=== PATIENT | male | born 1975 | race Caucasian/White ===

== ENCOUNTER 2021-03-21 18:40 | Emergency (ER) | payer OTHER, SELFPAY ==
[2021-03-21 18:42] VITALS: PULSE 87; RESP 15; TEMP 36.9; O2SAT 100; BMI 19.2
[2021-03-21 18:52] VITALS: BP 95/74
[2021-03-21] MEDS: HYDROmorphone 1 MG/ML Syringe 0.5 MG IV (19:19)
--- NOTE | 2021-03-21 19:28 | US_ITS ---
We are attempting to reach an attending provider to discuss findings. An addendum with communication details will be sent when the communication is complete. STUDY: VENOUS DOPPLER ULTRASOUND - LEFT LOWER EXTREMITY REASON FOR EXAM: Male, 45 years old. LEG PAIN AND SWELLING LT LEG PAIN TECHNIQUE: Ultrasound evaluation of the deep vein system to include rubalcava-scale imaging and compression was performed. Rubalcava-scale imaging and Doppler sonographic evaluation, including duplex spectral analysis and qualitative color flow sonography, was performed. COMPARISON: None. FINDINGS: Common Femoral Vein: thrombus Common Femoral Vein/Greater Saphenous Junction: thrombus Superficial Femoral Proximal: thrombus Superficial Femoral Middle: thrombus Superficial Femoral Distal: thrombus Popliteal Vein: thrombus Posterior Tibial Vein: Normal compression, spontaneity and augmentation. Normal color Doppler. Peroneal Vein: Normal compression, spontaneity and augmentation. Normal color Doppler. There is demonstrated deep venous thrombosis. US/Venous Duplex Imag/Limited/Uni IMPRESSION: There is a LEFT CFV to POP vein demonstrated deep venous thrombosis. Electronically Signed: Joe Ruvalcaba MD at 21:46 EST Reading Location ID and State: [facility] / [place] , Service support ,
[2021-03-21 19:39] LABS: Absolute Lymphocyte Count 1.25 X10^3/uL (0.83-4.51); Absolute Neutrophil Count 5.4 X10^3/uL (2.0-7.7); Basophil# 0.01 X10^3/uL; Basophil% 0.1 % (0-1); Eosinophil# 0.08 X10^3/uL; Eosinophils% 1.1 % (0-5); Hematocrit 27.4 % (40-54); Hemoglobin 8.6 g/dL (13.0-16.5); Lymphocyte # 1.25 X10^3/ul (0.83-4.51); Lymphocyte % 17.5 % (19-41); Mean Corp Hgb Conc 31.4 g/dL (32-36); Mean Corpuscular Hgb 26.9 pg (27.0-32.0); Mean Corpuscular Volume 85.6 fL (80-94); Monocyte# 0.44 X10^3/uL; Monocyte% 6.1 % (0-10); NRBC Flagged by Analyzer 0 % (0-5); Neutrophil # 5.35 X10^3/uL (2.7-7.7); Neutrophil % 74.8 % (47-70); Platelet Count 352 K/mm3 (150-450); RBC Distribution Width CV 17.6 % (11.6-14.6); RBC Distribution Width SD 55.1 fl (35.1-43.9); White Blood Count 7.2 K/mm3 (4.4-11.0)
--- NOTE | 2021-03-21 19:39 | EDS_ITS ---
HPI History of Present Illness Chief Complaint: Other, Pain/Inj Detail of Chief Complaint: Acute left lower leg pain and discoloration with swelling Informant: patient and spouse/S.O. Onset/Context/Timing Onset: Today and Hours Context: Sudden Onset Timing: Continuous Quality: Pain Location: Left lower extremity Current Severity: Moderate Maximum Severity: Severe Worsened by: Walking Relieved by: Nothing Associated Symptoms Associated Symptoms: Discoloration Narrative Narrative: Patient is a 45-year-old male who sustained significant trauma to his abdomen and has undergone multiple procedures who presents with chief complaint of left lower extremity pain and swelling with discoloration. He denies fever, chills night sweats. He denies shortness of breath or chest discomfort. He states his blood pressure is low at times. Prior similar symptoms: No Recent Illness/Hospitalization: Yes PFSH PFSH Allergy/AdvReac Type Severity Reaction Status Date / Time No Known Allergies Allergy Verified 03/21/21 18:49 Surgical History (Updated 03/21/21 @ 19:[address] J Carlos Grier MD) History of laparotomy Social History (Updated 03/21/21 @ 19:[address] J Carlos Grier MD) household members: spouse Smoking Status: Former smoker substance use type: does not use ROS ROS ED Constitutional Constitutional ED: Denies chills, fever(s), subjective, sweats or weight loss Cardiovascular Cardiovascular: Denies chest pain, orthopnea, palpitations, paroxysmal nocturnal dyspnea or racing heartbeat Respiratory/Chest Respiratory/Chest: Denies cough, dyspnea, dyspnea on exertion, orthopnea or paroxysmal nocturnal dyspnea Gastrointestinal Gastrointestinal: Denies diarrhea, nausea or vomiting Musculoskeletal Musculoskeletal: Reports other Details: Left lower extremity pain ; Denies arthralgias, back pain, myalgias or neck pain Integumentary Denies Abrasions or rash Neurologic Neurologic: Denies paresthesias or weakness Hematologic/Lymphatic Hematologic/Lymphatic: Denies anemia, easy bleeding or easy bruising EXAM Physical Exam Const Vital Signs: 03/21/21 18:42 03/21/21 18:50 03/21/21 18:52 Temperature 98.4 F Temperature Source Oral Pulse Rate 87 Respiratory Rate 15 Respiratory Effort Normal Non-Labored Respiratory Pattern Normal Blood Pressure 95/74 Blood Pressure Mean 81 Pulse Ox 100 Oxygen Delivery Method Room Air 03/21/21 21:28 02/08/22 23:16 Temperature Temperature Source Pulse Rate 91 93 Respiratory Rate 18 15 Respiratory Effort Respiratory Pattern Blood Pressure 109/71 104/72 Blood Pressure Mean 83 82 Pulse Ox 99 99 Oxygen Delivery Method Room Air Room Air Positive well nourished and well developed General Appearance ED: well developed and NAD; Negative for diaphoretic or pallor HEENT Reports moist mucous membranes Negative for trauma or tenderness Eyes PERRL and EOMs intact bilaterally General Eye ED: Negative for pale conjunctiva or scleral icterus Neck supple Resp normal respiratory effort Cardio regular rate and regular rhythm GI Rectal Exam: other Other Details: Patient with multiple scars Kenny-Moffett drain that is draining fecal matter because of persistent perforated bowel. Extremity Negative for normal to inspection Extremity Narrative: The left lower extremity exam swollen, discolored and pain along the distribution deep venous system. Veins are slightly prominent. Capillary refill is less than 2 seconds. General Extremety ED: Yes edema; Negative for tenderness General Extremity: edema Neuro oriented x3 and CN's II-XII intact bilaterally Sensorium / Orientation: alert Psych Mood & Affect: depressed Skin no wounds General Skin Exam: Negative for jaundice or pallor MDM MDM MDM Narrative Medical decision making narrative: With multiple surgical procedures, recent discharge from hospital and decreased activity and abrupt onset of leg pain, swelling discoloration concern patient has a DVT. Since patient has a palpable DP pulse and capillary refill less than 2 seconds doubt arterial occlusion. Patient has a clot common femoral to the distal popliteal. Material coming from drain is bloody fecal material. Patient cannot be anticoagulated. This would explain his elevated BUN to creatinine ratio and anemia. Since he received his care initially at [facility] and his surgeon is at [facility] he and his requested transfer to [facility]. The nurse at the call center informed the national secretary he will be placed on the list. They would not tell where he was on that list other than he is on the list. Apparently there are people in the emergency room waiting to be admitted and have been waiting for a long time. He and his were asked if there is any other facility they like to go to. is making calls. called Dr. Wade's answering service. I was instructed to call Dr. Wade. He instructed the nurse to have Dr. Wade contact me. I was informed that he is performing emergent surgery. Disposition pending convers ation with Dr. Sheri. Lab Data Attestation: I reviewed the patient's lab results. Lab results narrative: Patient has elevated BUN/creatinine ratio either this represents profound dehydration or possible GI bleed. Hemoglobin is 8.6. Will review prior records. Labs: Laboratory Results - last 24 hr 03/21/21 03/21/21 03/21/21 19:20 19:20 22:27 WBC 7.2 RBC 3.20 L Hgb 8.6 L Hct 27.4 L MCV 85.6 MCH 26.9 L MCHC 31.4 L RDW Std Deviation 55.1 H RDW Coeff of Michael 17.6 H Plt Count 352 MPV 9.0 Immature Gran % (Auto) 0.400 Neut % (Auto) 74.8 H Lymph % (Auto) 17.5 L [place] % (Auto) 6.1 Eos % (Auto) 1.1 Baso % (Auto) 0.1 Absolute Neuts (auto) 5.4 Absolute Lymphs (auto) 1.25 Nucleated RBC % 0 PT 13.5 INR 1.1 APTT 32.1 Sodium 141 Potassium 4.0 Chloride 110 H Carbon Dioxide 26.0 Anion Gap 5 BUN 41 H Creatinine 0.81 Estim Creat Clear Calc 104.58 Est GFR (MDRD) Af Amer 131 Est GFR (MDRD) Non-Af 109 BUN/Creatinine Ratio 50.4 H Glucose 79 Lactic Acid Calcium 9.8 03/21/21 22:27 WBC RBC Hgb Hct MCV MCH MCHC RDW Std Deviation RDW Coeff of Michael Plt Count MPV Immature Gran % (Auto) Neut % (Auto) Lymph % (Auto) [place] % (Auto) Eos % (Auto) Baso % (Auto) Absolute Neuts (auto) Absolute Lymphs (auto) Nucleated RBC % PT INR APTT Sodium Potassium Chloride Carbon Dioxide Anion Gap BUN Creatinine Estim Creat Clear Calc Est GFR (MDRD) Af Amer Est GFR (MDRD) Non-Af BUN/Creatinine Ratio Glucose Lactic Acid 1.1 Calcium Radiography Diagnostic Testing: Clinical Impression(s) from Imaging Studies Venous Duplex 03/21/21 19:28 IMPRESSION: There is a LEFT CFV to POP vein demonstrated deep venous thrombosis. Electronically Signed: Joe Ruvalcaba MD at 21:46 EST , ADDENDUM: 03/21/212204 IMPRESSION: There is a LEFT CFV to POP vein demonstrated deep venous thrombosis. N.B. : The above Results were Read Back by Joe Ruvalcaba MD to Dr. Marvel MD, and understanding confirmed on 03/21/2021 21:58:48 (ET). Electronically Signed: Joe Ruvalcaba MD at 21:46 EST Reading Location ID and State: [facility] / [place] , Service support , Rhythm Strip Rhythm Strip: Sinus Rhythm Rate: 85 Ectopy: None Critical Care Time Critical Care Time: Yes Critical care time (excluding procedures): 30-74 minutes (32 minutes), Including time spent: (History, physical, documentation interpretation laboratory results), Discussing w/Patient &/or Family/Supervisor Carding, Discussing w/Consultants and Arranging Admission or Transfer Discharge Plan Triage Chief Complaint: Other, Pain/Inj ED Provider: J Carlos Grier Dx/Rx/DC Orders Clinical Impression: Acute GI bleeding, Anemia due to blood loss, Acute deep vein thrombosis (DVT) of femoral vein of left lower extremity, Acute deep vein thrombosis (DVT) of popliteal vein of left lower extremity, Hypotension Primary Care Provider: Care Physician,No Primary Referrals: Care Physician,No Primary [Primary Care Provider] - Disposition Disposition: [facility]
[2021-03-21 19:50] LABS: Anion Gap 5 (5-15); BUN 41 mg/dL (7-18); BUN/Creat Ratio 50.4 RATIO (10-20); Calcium,Total 9.8 mg/dL (8.5-10.1); Chloride 110 mmol/L (98-107); Creatinine, Serum 0.81 mg/dL (0.70-1.30); EST Glomerular Filtration Rate 109 mL/min (>60); Est Glom Filt Rate - Afr Amer 131 mL/min (>60); Estimated Creatinine Clearance 104.58 ml/min; Glucose 79 mg/dL (74-106); Sodium Level 141 mmol/L (136-145)
[2021-03-21 21:28] VITALS: BP 109/71; PULSE 91; RESP 18; O2SAT 99
[2021-03-21] MEDS: Ondansetron 4 MG/2 ML Vial IV (21:53)
[2021-03-21] MEDS: Acetaminophen 325 MG Tablet 975 MG PO (21:57)
[2021-03-21] MEDS: DiphenhydrAMINE 25 MG Capsule 50 MG PO (21:57)
[2021-03-21] MEDS: Celecoxib 200 MG Capsule PO (21:58)
[2021-03-21] MEDS: tiZANidine HCl 2 MG Tablet 4 MG PO (21:58)
[2021-03-21] MEDS: Gabapentin 300 MG Capsule PO (21:58)
[2021-03-21 22:45] LABS: International Normalized Ratio 1.1; Prothrombin Time (Protime)PT. 13.5 SECONDS (11.7-14.9)
[2021-03-21 22:46] LABS: Partial Thromboplast Time 32.1 Seconds (24.1-36.2)
[2021-03-21 23:05] LABS: Lactic Acid 1.1 mmol/L (0.4-1.9)
[2021-03-21] MEDS: HYDROmorphone 0.5 MG/0.5 ML SYRINGE IV (23:15)
[2021-03-21 23:16] VITALS: BP 104/72; PULSE 93; RESP 15; O2SAT 99
[2021-03-22 01:00] VITALS: BP 97/69; PULSE 90; RESP 15; O2SAT 97
[2021-03-22 03:00] VITALS: BP 101/70; PULSE 84; RESP 15; O2SAT 99
[2021-03-22] MEDS: HYDROmorphone 0.5 MG/0.5 ML SYRINGE IV (03:16)
== END 2021-03-22 04:03 | disposition short-term general hospital (02) ==
PROVIDERS: Emergency Provider Emergency Medicine; Visit Provider Emergency Medicine
DX: K92.1 Melena (principal); I82.412 Acute embolism and thrombosis of left femoral vein; I82.432 Acute embolism and thrombosis of left popliteal vein; I95.9 Hypotension, unspecified; Z20.822 Contact with and (suspected) exposure to COVID-19; Z79.899 Other long term (current) drug therapy; D50.0 Iron deficiency anemia secondary to blood loss (chronic); Z87.891 Personal history of nicotine dependence
CPT/HCPCS: 80048; 82274; 83605; 85025; 85610; 85730; 87426; 93971; 96374; 96375; 96376; 99285; A4216; J2405